=== PATIENT | female | born 1975 | race Caucasian/White ===

== ENCOUNTER 2017-10-24 07:18 | Emergency (ER) | payer OTHER ==
[~2017-10-24] VITALS: Ht 165.1 cm; Wt 68.5 kg
[~2017-10-24 07:18] MED LIST: CITA10TA8 PO; CLON-365 PO; QUET25TA5 PO
[2017-10-24 07:21] VITALS: BP 144/84
== END 2017-10-24 08:30 | disposition home or self-care (01) ==
LOC: ED 08:24
DX: J00 Acute nasopharyngitis [common cold] (principal); Z88.0 Allergy status to penicillin; Z88.2 Allergy status to sulfonamides; Z88.1 Allergy status to other antibiotic agents
CPT/HCPCS: 71020